=== PATIENT | female | born 1985 | race Caucasian/White ===

== ENCOUNTER 2020-07-18 12:13 | Outpatient (CLI) | payer OTHER ==
[2020-07-18] MEDS ORDERED: GADOBUTROL 10 MMOL/10 ML VIAL ONE (12:22)
--- NOTE | 2020-07-18 15:45 | MRI Report ---
PROCEDURE: Hand LT W/WO INDICATIONS: SOFT TISSUE MASS OVER PALMAR ASPECT OF LT HAND CONTRAST: IV CONTRAST: Gadavist ml: 6.3 TECHNIQUE: Noncontrast coronal T1 spin echo and T2 fast spin echo with fat saturation, axial proton density fast spin echo and T2 fast spin echo with fat saturation, axial T1 spin echo with fat saturation, sagitta l T1 spin echo and STIR through the hand and fingers. Post-contrast axial, coronal, and sagittal T1 spin echo through the hand and fingers. COMPARISON: None. FINDINGS: Image quality: Excellent. Bones: The bones are normally aligned, without marrow contusions or fractures. No intra-osseous les ions. Minimal degenerative spurring is seen at the first carpometacarpal and first metacarpophalange al joints. No focal osseous erosion. Soft tissues: There is a lobular cyst in the subcutaneous tissues anterior to the second metacarpal head measuring 9 x 5 x 10 mm. There is intrinsic T1 hyperintense signal within the cyst without postc ontrast enhancement. Visualized muscles demonstrate normal bulk and internal signal. No intramuscula r masses identified. No ganglion cysts. IMPRESSION: Small cyst measuring 9 x 5 x 10 mm at the volar aspect of the hand adjacent to the second metacarpoph alangeal joint, most likely a ganglion cyst. There is intrinsic T1 hyperintense signal without postco ntrast enhancement, which may indicate proteinaceous or hemorrhagic fluid contents. Reviewed by: Andrade Akins MD on 07/18/2020 3:43 PM PDT Approved by: Andrade Akins MD on 07/18/2020 3:43 PM PDT Station ID: [id number]
[2020-07-18] MEDS: GADOBUTROL 10 MMOL/10 ML VIAL IVP ONE (16:50)
== END 2020-07-18 12:14 | disposition home or self-care (01) ==
LOC: DI 12:13
PROVIDERS: ATTEND Student in an Organized Health Care Education/Training Program
DX: M25.842 Other specified joint disorders, left hand (principal)
CPT/HCPCS: 73220; A9585

== ENCOUNTER 2020-09-18 17:51 | Outpatient (CLI) | payer OTHER ==
--- NOTE | 2020-09-19 06:07 | XRAY Report ---
PROCEDURE: Hand 3 View LT INDICATIONS: L HAND PX TECHNIQUE: 3 views of the hand(s) acquired. COMPARISON: None FINDINGS: Bones: No fractures or dislocations. No suspicious bony lesions. Soft tissues: No suspicious soft tissue calcifications. IMPRESSION: No definitive radiographic abnormality. If indicated, MRI could be performed for further assessment. Reviewed by: ISA Ashraf on 09/19/2020 6:05 AM PDT Approved by: Evangelist Silva MD on 09/19/2020 6:05 AM PDT Station ID: [id number]
== END 2020-09-18 23:59 | disposition home or self-care (01) ==
LOC: DI.N 17:51
PROVIDERS: ATTEND Physician Assistant
DX: M79.642 Pain in left hand (principal)

== ENCOUNTER 2023-04-15 10:45 | Outpatient (CLI) | payer OTHER ==
--- NOTE | 2023-04-15 20:13 | XRAY Report ---
PROCEDURE: Knee 4+V LT INDICATIONS: PATELLOFEMORAL DISORDER, LEFT TECHNIQUE: 4 views of the knee was obtained. COMPARISON: None FINDINGS: Bones: No fractures or dislocations. No suspicious bony lesions. Soft tissues: No knee joint effusion. No suspicious soft tissue calcifications or masses. IMPRESSION: Unremarkable knee radiographs Reviewed by: Sharath Brown MD on 04/15/2023 7:12 PM [place] Approved by: Sharath Brown MD on 04/15/2023 7:12 PM [place] Station ID: [id number]
== END 2023-04-15 11:00 | disposition home or self-care (01) ==
LOC: DI.N 10:45
PROVIDERS: ATTEND Physician Assistant
DX: M22.2X2 Patellofemoral disorders, left knee (principal)